=== PATIENT | female | born 1940 ===

== ENCOUNTER 2021-06-23 15:12 | Inpatient (IN) | payer MEDICARE ==
[2021-06-23] MEDS ORDERED: SODIUM CHLORIDE 0.9% 500 ML 500 ML IV STA (16:10)
--- NOTE | 2021-06-23 16:26 | ED ---
Recheck HPI - General Chief Complaint: Recheck/Abnormal Lab/Rx Stated Complaint: not eating or drinking Time Seen by Provider: 06/23/21 15:24 Source: patient Mode of arrival: EMS Limitations: no limitations - History of Present Illness Initial Comments: 81-year-old female patient presents to the emergency department today from her [facility] facility for PEG tube placement. Patient has not been eating or drinking. Power of admitted attorneys wanted her transferred here so she could have a PEG tube placed. She was recently admitted to the hospital for infected left shoulder, had surgical removal of hardware and has been treated for MRSA infection of the joint. Patient is reporting feeling unwell for the last week states she feels very nauseated does not want to eat or drink. She states her abdomen is hurting, unable to pinpoint location. Patient is poor historian. No family present. - Related Data Home Medications Medication Instructions Recorded Confirmed Acetaminophen [Tylenol] 500 mg PO Q6H PRN 06/15/21 06/23/21 Atorvastatin [Lipitor] 40 mg PO HS@209906/15/21 06/23/21 Cholestyramine (with Sugar) 4 gm PO DAILY@89906/15/21 06/23/21 [Questran Packet] Docusate [Colace] 100 mg PO BID@0900,1700 06/15/21 06/23/21 Memantine [Namenda] 10 mg PO BID@0900,209906/15/21 06/23/21 Metoprolol Succinate [Toprol XL] 50 mg PO HS@209906/15/21 06/23/21 Omeprazole 20 mg PO DAILY@0606/15/21 06/23/21 Polyethylene Glycol 3350 [Miralax] 17 gm PO DAILY@89906/15/21 06/23/21 Furosemide [Lasix] 20 mg PO DAILY@89906/23/21 06/23/21 Ibuprofen [Advil] 200 mg PO QID@0000,0600,12,18 06/23/21 06/23/21 Megestrol [Megace] 400 mg PO DAILY@89906/23/21 06/23/21 Potassium Bicarbonate/Cit AC 10 meq PO DAILY@0906/23/21 06/23/21 [K-Lyte] traMADol HCL [Ultram] 50 mg PO Q4HR PRN 06/23/21 06/23/21 Previous Rx's Medication Instructions Recorded QUEtiapine [SEROquel] 12.5 mg PO HS PRN tab 06/22/21 Allergies Allergy/AdvReac Type Severity Reaction Status Date / Time bupropion Allergy Unknown Verified 06/23/21 17:33 codeine Allergy Unknown Verified 06/23/21 17:33 fentanyl Allergy Unknown Verified 06/23/21 17:33 metoclopramide Allergy Unknown Verified 06/23/21 17:33 midazolam Allergy Unknown Verified 06/23/21 17:33 morphine Allergy Unknown Verified 06/23/21 17:33 nitrofurantoin Allergy Unknown Verified 06/23/21 17:33 simvastatin Allergy Unknown Verified 06/23/21 17:33 Review of Systems ROS Statement: Those systems with pertinent positive or pertinent negative responses have been documented in the HPI. ROS Other: All systems not noted in ROS Statement are negative. Past Medical History Past Medical History: Dementia, GERD/Reflux, Hyperlipidemia, Hypertension, Seizure Disorder Additional Past Medical History / Comment(s): urinay tract infection, History of Any Multi-Drug Resistant Organisms: MRSA Date of last positivie culture/infection: 06/16/21 MDRO Source:: MRSA SHOULDER Past Surgical History: Orthopedic Surgery Additional Past Surgical History / Comment(s): right humerous fx repair Past Anesthesia/Blood Transfusion Reactions: Unable to Obtain Past Psychological History: Unable to Obtain, Depression Smoking Status: Unknown if ever smoked General Exam Limitations: no limitations General appearance: alert, in no apparent distress, other (This is a well- developed, well-nourished elderly female patient in no acute distress. Vital signs upon presentation are temperature 98.2F, pulse 92, respirations 18, blood pressure 153/73, pulse ox 98% on room air.) Eye exam: Present: normal appearance, PERRL, EOMI. Absent: scleral icterus, conjunctival injection, periorbital swelling ENT exam: Present: normal exam, normal oropharynx, mucous membranes moist Respiratory exam: Present: normal lung sounds bilaterally. Absent: respiratory distress, wheezes, rales, rhonchi, stridor Cardiovascular Exam: Present: regular rate, normal rhythm, normal heart sounds. Absent: systolic murmur, diastolic murmur, rubs, gallop, clicks GI/Abdominal exam: Present: soft, tenderness (Generalized), normal bowel sounds. Absent: distended, guarding, rebound, rigid Neurological exam: Present: alert, oriented X3, CN II-XII intact Psychiatric exam: Present: normal affect, normal mood Skin exam: Present: warm, dry, intact, normal color. Absent: rash Course Vital Signs 06/23/21 06/23/21 06/23/21 15:18 17:00 18:09 Temperature 98.2 F Pulse Rate 92 90 89 Respiratory 18 18 18 Rate Blood Pressure 153/73 149/73 147/70 O2 Sat by Pulse 98 97 97 Oximetry 06/23/21 19:41 Temperature Pulse Rate 102 H Respiratory 20 Rate Blood Pressure 143/68 O2 Sat by Pulse 97 Oximetry Medical Decision Making - Medical Decision Making 81-year-old female patient presents to the emergency department from on the [facility] for PEG tube placement. Patient has not been eating or drinking, return to requested she be evaluated for this. Did recently have left shoulder surgery and IV antibiotics for MRSA infection, it appears as though the course of antibiotics is complete. Labs reviewed reviewed and did show decreased hemoglobin which is 9.3. She did have low potassium at 3.1. Unable take these orally so we did administer IV infusion to replace. Shows complaining of abdominal pain so did perform CT abdomen and pelvis which showed no acute abnormalities, some fluid on the lungs. Other labs are relatively unremarkable. She'll be admitted to the hospitalist consult to Dr. Newman for possible PEG tube. My attending is Dr. Mchugh. - Lab Data Result diagrams: 06/23/21 18:01 06/23/21 18:04 Lab Results 06/23/21 06/23/21 06/23/21 Range/Units 16:59 18:01 18:01 WBC 9.8 (3.8-10.6) k/uL RBC 2.98 L (3.80-5.40) m/uL Hgb 9.3 L (11.4-16.0) gm/dL Hct 29.2 L (34.0-46.0) % MCV 97.8 (80.0-100.0) fL MCH 31.1 (25.0-35.0) pg MCHC 31.8 (31.0-37.0) g/dL RDW 14.5 (11.5-15.5) % Plt Count 354 (150-450) k/uL MPV 7.8 Neutrophils % 70 % Lymphocytes % 18 % Monocytes % 6 % Eosinophils % 3 % Basophils % 0 % Neutrophils # 6.9 (1.3-7.7) k/uL Lymphocytes # 1.8 (1.0-4.8) k/uL Monocytes # 0.6 (0-1.0) k/uL Eosinophils # 0.3 (0-0.7) k/uL Basophils # 0.0 (0-0.2) k/uL Hypochromasia Slight Sodium (137-145) mmol/L Potassium (3.5-5.1) mmol/L Chloride (98-107) mmol/L Carbon Dioxide (22-30) mmol/L Anion Gap mmol/L BUN (7-17) mg/dL Creatinine (0.52-1.04) mg/dL Est GFR (CKD-EPI)AfAm (>60 ml/min/1.73 sqM) Est GFR (CKD-EPI)NonAf (>60 ml/min/1.73 sqM) Glucose (74-99) mg/dL Plasma Lactic Acid Chicho 1.5 (0.7-2.0) mmol/L Calcium (8.4-10.2) mg/dL Total Bilirubin (0.2-1.3) mg/dL AST (14-36) U/L ALT (4-34) U/L Alkaline Phosphatase (38-126) U/L Total Protein (6.3-8.2) g/dL Albumin (3.5-5.0) g/dL Lipase (23-300) U/L Urine Color Yellow Urine Appearance Cloudy H (Clear) Urine pH 5.0 (5.0-8.0) Ur Specific [place] 1.017 (1.001-1.035) Urine Protein Trace H (Negative) Urine Glucose (UA) Negative (Negative) Urine Ketones 1+ H (Negative) Urine Blood Negative (Negative) Urine Nitrite Negative (Negative) Urine Bilirubin Negative (Negative) Urine Urobilinogen <2.0 (<2.0) mg/dL Ur Leukocyte Esterase Small H (Negative) Urine RBC 1 (0-5) /hpf Urine WBC 6 H (0-5) /hpf Ur Squamous Epith Cells 4 (0-4) /hpf Urine Bacteria Rare H (None) /hpf Urine Mucus Rare H (None) /hpf 08/20/21 Range/Units 18:04 WBC (3.8-10.6) k/uL RBC (3.80-5.40) m/uL Hgb (11.4-16.0) gm/dL Hct (34.0-46.0) % MCV (80.0-100.0) fL MCH (25.0-35.0) pg MCHC (31.0-37.0) g/dL RDW (11.5-15.5) % Plt Count (150-450) k/uL MPV Neutrophils % % Lymphocytes % % Monocytes % % Eosinophils % % Basophils % % Neutrophils # (1.3-7.7) k/uL Lymphocytes # (1.0-4.8) k/uL Monocytes # (0-1.0) k/uL Eosinophils # (0-0.7) k/uL Basophils # (0-0.2) k/uL Hypochromasia Sodium 141 (137-145) mmol/L Potassium 3.1 L (3.5-5.1) mmol/L Chloride 109 H (98-107) mmol/L Carbon Dioxide 20 L (22-30) mmol/L Anion Gap 12 mmol/L BUN 16 (7-17) mg/dL Creatinine 1.12 H (0.52-1.04) mg/dL Est GFR (CKD-EPI)AfAm 53 (>60 ml/min/1.73 sqM) Est GFR (CKD-EPI)NonAf 46 (>60 ml/min/1.73 sqM) Glucose 97 (74-99) mg/dL Plasma Lactic Acid Chicho (0.7-2.0) mmol/L Calcium 8.7 (8.4-10.2) mg/dL Total Bilirubin 0.3 (0.2-1.3) mg/dL AST 27 (14-36) U/L ALT 8 (4-34) U/L Alkaline Phosphatase 92 (38-126) U/L Total Protein 5.9 L (6.3-8.2) g/dL Albumin 2.8 L (3.5-5.0) g/dL Lipase 84 (23-300) U/L Urine Color Urine Appearance (Clear) Urine pH (5.0-8.0) Ur Specific [place] (1.001-1.035) Urine Protein (Negative) Urine Glucose (UA) (Negative) Urine Ketones (Negative) Urine Blood (Negative) Urine Nitrite (Negative) Urine Bilirubin (Negative) Urine Urobilinogen (<2.0) mg/dL Ur Leukocyte Esterase (Negative) Urine RBC (0-5) /hpf Urine WBC (0-5) /hpf Ur Squamous Epith Cells (0-4) /hpf Urine Bacteria (None) /hpf Urine Mucus (None) /hpf - Radiology Data Radiology results: report reviewed, image reviewed Disposition Clinical Impression: Failure to thrive, Hypokalemia Disposition: ADMITTED IP TO THIS [facility] Condition: Serious Referrals: Johnathon Sylvester MD [Primary Care Provider] - 1-2 days Decision to Admit Reason: Admit from EC Decision Date: 06/23/21 Decision Time: 20:02
[2021-06-23 17:17] LABS: Appearance,Urine Cloudy (Clear); Bacteria,Urine Rare /hpf; Bilirubin,Urine Negative (Negative); Blood,Urine Negative (Negative); Color,Urine Yellow; Glucose,Urine (UA) Negative (Negative); Ketones,Urine 1+ (Negative); Leukocyte Esterase,Urine Small (Negative); Mucus,Urine Rare /hpf; Nitrite,Urine Negative (Negative); Protein,Urine Trace (Negative); RBC,Urine 1 /hpf (0-5); Specific Gravity,Urine 1.017 (1.001-1.035); Squamous Epithelial Cell,Urine 4 /hpf (0-4); Urobilinogen,Urine <2.0 mg/dL (<2.0); WBC,Urine 6 /hpf (0-5)
[2021-06-23 18:10] LABS: Basophils % (A) 0 %; Eosinophils # (A) 0.3 k/uL (0-0.7); Eosinophils % (A) 3 %; HCT 29.2 % (34.0-46.0); HGB 9.3 gm/dL (11.4-16.0); Hypochromasia Slight; Lymphocytes # (A) 1.8 k/uL (1.0-4.8); Lymphocytes % (A) 18 %; MCH 31.1 pg (25.0-35.0); MCHC 31.8 g/dL (31.0-37.0); MCV 97.8 fL (80.0-100.0); Mean Platelet Volume 7.8; Monocytes # (A) 0.6 k/uL (0-1.0); Monocytes % (A) 6 %; Neutrophils # (A) 6.9 k/uL (1.3-7.7); Neutrophils % (A) 70 %; Platelet Count 354 k/uL (150-450); RBC 2.98 m/uL (3.80-5.40); RDW 14.5 % (11.5-15.5); WBC 9.8 k/uL (3.8-10.6)
[2021-06-23 18:21] LABS: Albumin 2.8 g/dL (3.5-5.0); Calcium 8.7 mg/dL (8.4-10.2); Potassium 3.1 mmol/L (3.5-5.1); Total Bilirubin 0.3 mg/dL (0.2-1.3); Total Protein 5.9 g/dL (6.3-8.2)
[2021-06-23] MEDS ORDERED: POTASSIUM CHLORIDE ER 20 MEQ TAB.ER PO STA (18:37)
[2021-06-23] MEDS ORDERED: ACETAMINOPHEN TAB 500 MG TAB PO PRN (19:13)
[2021-06-23] MEDS ORDERED: Potassium Replacement Protocol 1 EACH MISC MISCELLANE PRN (20:00)
--- NOTE | 2021-06-23 20:00 | CT ---
EXAMINATION TYPE: CT abdomen pelvis w con DATE OF EXAM: 06/23/2021 COMPARISON: None HISTORY: Abdominal pain. CT DLP: 1054.7 mGycm Automated exposure control for dose reduction was used. CONTRAST: Performed with IV Contrast, patient injected with 80ml mL of Isovue 300. Images obtained from the diaphragm to the floor the pelvis with IV contrast. There are bilateral pleural effusions. Heart is normal. There is 3 cm cyst in the posterior right lob e of the liver. There are multiple surgical clips at the gastroesophageal junction. The common bile d uct is dilated and measures 1.5 cm. There is some mild ectasia of the intrahepatic bile ducts. There are clips from cholecystectomy. There is no pancreatic mass. Spleen is intact. There is no adrenal mass. Kidneys show satisfactory contrast opacification. There is no hydronephrosi s. Delayed images show normal renal excretion. Abdominal aorta is atheromatous. There is no retroperi toneal adenopathy. Bladder distends smoothly. There is right hip prosthesis. There are multiple sigmo id diverticula. There is no diverticulitis. There is no mesenteric edema. There is no ascites or free air. There is no bowel obstruction. Appendix is not seen. There is no sign of thickened appendix. There is metal artifact from right hip nailing. Lumbar vertebra have normal alignment. There is verte broplasty at L2 and L1 and T12 and T11 with up to 30% loss of height. There is osteopenia. The bony p ede is intact. IMPRESSION: There is sigmoid diverticulosis without diverticulitis. Atherosclerotic vascular disease. Cholecystectomy with dilated biliary tree. No obstructing lesion seen. Bilateral pleural effusions. B ilateral basilar atelectasis. Pleural effusion significantly increased compared to 06/15/2021 CT scan of the chest. This could be congestive heart failure. Bile ducts not changed.
[2021-06-23] MEDS ORDERED: NALOXONE 0.4 MG/ML 1 ML VIAL IV PRN (20:02)
--- NOTE | 2021-06-23 20:07 | HP ---
HISTORY AND PHYSICAL DATE OF SERVICE: 06/23/2021 CHIEF COMPLAINTS: Diminished p.o. intake and confusion. HISTORY OF PRESENT ILLNESS: This 81-year-old woman with a past medical history of dementia, history of GERD, hypertension, seizure disorder, history of MRSA, living in the [facility], was recently admitted to the hospital with change in mental status, encephalopathy and possible vancomycin toxicity. The patient had a possible infection of the left shoulder, but the patient was sent to rehab, but currently apparently the patient was not taking enough feeds there. The patient continued to be confused. The patient was not eating or drinking and the patient was transferred to [facility] for further evaluation and possible PEG tube placement. The patient is confused, unable to give a coherent history. Most of the history is taken from my discussion with staff and review of the chart at this time. PAST MEDICAL HISTORY: History of dementia, GERD, hypertension, hyperlipidemia, seizure disorder, history of left infected shoulder recently. MEDICATIONS: Home medications are Tylenol, Ultram, Advil, Namenda, Colace, Seroquel, K-Lyte, MiraLAX, omeprazole, Toprol-XL, Megace, Lasix, Lipitor. Doses are reviewed. ALLERGIES: BUPROPION, CODEINE, FENTANYL, METOCLOPRAMIDE, MORPHINE, NITROFURANTOIN, SIMVASTATIN. Family history, social history, review of systems could not be taken. The patient is confused. PHYSICAL EXAMINATION: Pulse is 89, blood pressure 147/70, respiration 18, temperature 98.2, pulse ox 97% on 2 L. HEENT: Conjunctivae normal. NECK: No jugular venous distention. CARDIOVASCULAR: S1, S2 muffled. RESPIRATION: Breath sounds diminished at the bases. A few scattered rhonchi and crackles. ABDOMEN: Soft, nontender. No mass palpable. Mild diffuse discomfort. LEGS: No edema. No swelling. NERVOUS SYSTEM: Higher functions as mentioned earlier. Moves all 4 limbs. No focal motor or sensory deficit. LYMPHATICS: No lymph node palpable in neck, axillae or groin. SKIN: No ulcer, rash, bleeding. JOINTS: No active deforming arthropathy. LEFT SHOULDER: Status post surgery. LABS: WBC 9.2, hemoglobin 9.2, sodium 142, potassium 3.9. ASSESSMENT: 1. Change in mental status, acute metabolic encephalopathy, multifactorial. 2. Diminished oral intake. 3. Hypokalemia. 4. Dehydration with acute renal failure. 5. Hypoalbuminemia with mild to moderate protein-calorie malnutrition. 6. History of postoperative infection of the left shoulder, status post incision and drainage and removal of the hardware per Orthopedic Surgery showing MRSA. 7. History of dementia. 8. History of gastroesophageal reflux disease. 9. Hypertension. 10.Hyperlipidemia. 11.History of seizure disorder. 12.History of urinary tract infection. 13.History of MRSA, shoulder. RECOMMENDATIONS AND DISCUSSION: In this 81-year-old woman who presented with multiple complex medical issues, we will monitor the patient closely, continue the current medications, continue symptomatic treatment. It seems like the patient will require a PEG tube. Will continue to monitor. Resume the home medications. Surgical evaluation. Guarded prognosis because of multiple complex medical issues. Further recommendations to follow. MMANGEL / ENN: [id number] / MTDD
[2021-06-23] MEDS: POTASSIUM CHLORIDE 10 MEQ in WATER FOR INJECTION 1 100ML.BAG IVPB SCH ×2 (21:39→23:04)
[2021-06-23] MEDS: MEMANTINE 10 MG TAB PO SCH (22:29)
[2021-06-23] MEDS: ATORVASTATIN 40 MG TAB PO SCH (22:29)
[2021-06-23] MEDS: METOPROLOL SUCCINATE (ER) 50 MG TAB.ER.24H PO SCH (22:29)
[2021-06-24] MEDS: IBUPROFEN 200 MG TAB PO SCH ×5 (00:10→20:24)
[2021-06-24] MEDS: POTASSIUM CHLORIDE 10 MEQ in WATER FOR INJECTION 1 100ML.BAG IVPB SCH ×2 (00:11→01:20)
[2021-06-24] MEDS: PANTOPRAZOLE 40 MG TABLET PO SCH (06:22)
[2021-06-24] MEDS: FUROSEMIDE 20 MG TAB PO SCH (09:25)
[2021-06-24] MEDS: DOCUSATE 100 MG CAP PO SCH ×2 (09:25→16:22)
[2021-06-24] MEDS: MEMANTINE 10 MG TAB PO SCH ×2 (09:25→20:24)
[2021-06-24] MEDS: POTASSIUM CHLORIDE ER 10 MEQ TAB.ER.PRT PO SCH (09:25)
[2021-06-24] MEDS: MEGESTROL 400 MG/10 ML CUP PO SCH (09:26)
[2021-06-24] MEDS: polyethylene glycoL 3350 17 GM POWD.PACK PO SCH (09:26)
[2021-06-24] MEDS: CHOLESTYRAMINE (WITH SUGAR) 4 GM PACKET PO SCH (09:26)
--- NOTE | 2021-06-24 09:50 | P.GSCN ---
History of Present Illness Consult date: 06/24/21 Reason for Consult: Malnutrition History of present illness: 81-year-old female comes from the long term. Patient apparently has not been eating or drinking. Patient's daughter Rosita requesting PEG tube placement. Recently hospitalized for infected left shoulder. On antibiotics for that. Some nausea. Some confusion. Review of Systems The patient denies any acute changes in vision or hearing, no dysphagia or odynophagia, no chest pain or shortness of breath, no dysuria or hematuria, no headache, no runny nose, no rectal bleeding or melena, no unexplained weight loss Past Medical History Past Medical History: Dementia, GERD/Reflux, Hyperlipidemia, Hypertension, Seizure Disorder Additional Past Medical History / Comment(s): urinay tract infection, History of Any Multi-Drug Resistant Organisms: MRSA Year Discovered:: 06/16/21 MDRO Source:: MRSA SHOULDER Past Surgical History: Orthopedic Surgery Additional Past Surgical History / Comment(s): right humerous fx repair Past Anesthesia/Blood Transfusion Reactions: Unable to Obtain Past Psychological History: Unable to Obtain, Depression Smoking Status: Unknown if ever smoked Medications and Allergies Home Medications Medication Instructions Recorded Confirmed Type Acetaminophen [Tylenol] 500 mg PO Q6H PRN 06/15/21 06/23/21 History Atorvastatin [Lipitor] 40 mg PO HS@209906/15/21 06/23/21 History Cholestyramine (with Sugar) 4 gm PO DAILY@89906/15/21 06/23/21 History [Questran Packet] Docusate [Colace] 100 mg PO BID@0900,1700 06/15/21 06/23/21 History Memantine [Namenda] 10 mg PO BID@0900,209906/15/21 06/23/21 History Metoprolol Succinate [Toprol XL] 50 mg PO HS@209906/15/21 06/23/21 History Omeprazole 20 mg PO DAILY@0600 06/15/21 06/23/21 History Polyethylene Glycol 3350 [Miralax] 17 gm PO DAILY@89906/15/21 06/23/21 History QUEtiapine [SEROquel] 12.5 mg PO HS PRN tab 06/22/21 06/23/21 Rx Furosemide [Lasix] 20 mg PO DAILY@89906/23/21 06/23/21 History Ibuprofen [Advil] 200 mg PO QID@0000,0600,12,18 06/23/21 06/23/21 History Megestrol [Megace] 400 mg PO DAILY@0900 06/23/21 06/23/21 History Potassium Bicarbonate/Cit AC 10 meq PO DAILY@0900 06/23/21 06/23/21 History [K-Lyte] traMADol HCL [Ultram] 50 mg PO Q4HR PRN 06/23/21 06/23/21 History Allergies Allergy/AdvReac Type Severity Reaction Status Date / Time bupropion Allergy Unknown Verified 06/23/21 17:33 codeine Allergy Unknown Verified 06/23/21 17:33 fentanyl Allergy Unknown Verified 06/23/21 17:33 metoclopramide Allergy Unknown Verified 06/23/21 17:33 midazolam Allergy Unknown Verified 06/23/21 17:33 morphine Allergy Unknown Verified 06/23/21 17:33 nitrofurantoin Allergy Unknown Verified 06/23/21 17:33 simvastatin Allergy Unknown Verified 06/23/21 17:33 Surgical - Exam Vital Signs Temp Pulse Resp BP Pulse Ox 98.2 F 92 18 153/73 98 06/23/21 15:18 06/23/21 15:18 06/23/21 15:18 06/23/21 15:18 06/23/21 15:18 Physical exam: General: Well-developed, well-nourished HEENT: Normocephalic, sclerae nonicteric Abdomen: Nontender, nondistended Extremities: Left arm incision Neuro: Alert and oriented Results - Labs 06/23/21 18:01 06/23/21 18:04 Abnormal Lab Results - Last 24 Hours (Table) 06/23/21 06/23/21 06/23/21 Range/Units 16:59 18:01 18:04 RBC 2.98 L (3.80-5.40) m/uL Hgb 9.3 L (11.4-16.0) gm/dL Hct 29.2 L (34.0-46.0) % Potassium 3.1 L (3.5-5.1) mmol/L Chloride 109 H (98-107) mmol/L Carbon Dioxide 20 L (22-30) mmol/L Creatinine 1.12 H (0.52-1.04) mg/dL Total Protein 5.9 L (6.3-8.2) g/dL Albumin 2.8 L (3.5-5.0) g/dL Urine Appearance Cloudy H (Clear) Urine Protein Trace H (Negative) Urine Ketones 1+ H (Negative) Ur Leukocyte Esterase Small H (Negative) Urine WBC 6 H (0-5) /hpf Urine Bacteria Rare H (None) /hpf Urine Mucus Rare H (None) /hpf Diabetes panel 06/23/21 Range/Units 18:04 Sodium 141 (137-145) mmol/L Potassium 3.1 L (3.5-5.1) mmol/L Chloride 109 H (98-107) mmol/L Carbon Dioxide 20 L (22-30) mmol/L BUN 16 (7-17) mg/dL Creatinine 1.12 H (0.52-1.04) mg/dL Glucose 97 (74-99) mg/dL Calcium 8.7 (8.4-10.2) mg/dL AST 27 (14-36) U/L ALT 8 (4-34) U/L Alkaline Phosphatase 92 (38-126) U/L Total Protein 5.9 L (6.3-8.2) g/dL Albumin 2.8 L (3.5-5.0) g/dL Calcium panel 06/23/21 Range/Units 18:04 Calcium 8.7 (8.4-10.2) mg/dL Albumin 2.8 L (3.5-5.0) g/dL Pituitary panel 06/23/21 Range/Units 18:04 Sodium 141 (137-145) mmol/L Potassium 3.1 L (3.5-5.1) mmol/L Chloride 109 H (98-107) mmol/L Carbon Dioxide 20 L (22-30) mmol/L BUN 16 (7-17) mg/dL Creatinine 1.12 H (0.52-1.04) mg/dL Glucose 97 (74-99) mg/dL Calcium 8.7 (8.4-10.2) mg/dL Adrenal panel 06/23/21 Range/Units 18:04 Sodium 141 (137-145) mmol/L Potassium 3.1 L (3.5-5.1) mmol/L Chloride 109 H (98-107) mmol/L Carbon Dioxide 20 L (22-30) mmol/L BUN 16 (7-17) mg/dL Creatinine 1.12 H (0.52-1.04) mg/dL Glucose 97 (74-99) mg/dL Calcium 8.7 (8.4-10.2) mg/dL Total Bilirubin 0.3 (0.2-1.3) mg/dL AST 27 (14-36) U/L ALT 8 (4-34) U/L Alkaline Phosphatase 92 (38-126) U/L Total Protein 5.9 L (6.3-8.2) g/dL Albumin 2.8 L (3.5-5.0) g/dL Assessment and Plan (1) Protein-calorie malnutrition, moderate Narrative/Plan: Options discussed with the patient's daughter Rosita by phone. She remains interested in PEG tube placement for supplemental feeding. We'll schedule for EGD with PEG tube placement tomorrow. Risks of bleeding, infection, bowel injury, inability to place catheter, aspiration. She understands and wishes to proceed. Current Visit: Yes Status: Acute Code(s): E44.0 - MODERATE PROTEIN-CALORIE MALNUTRITION SNOMED Code(s): 985145572
--- NOTE | 2021-06-24 12:29 | P.PN ---
Subjective Progress Note Date: 06/24/21 Principal diagnosis: Encephalopathy On reviewing vitals from today 81-year-old female with a past medical history of dementia, GERD, hypertension, seizure disorder, history of MRSA, living in [facility] was admitted to the hospital for mental status changes possibly secondary to vancomycin toxicity. Patient has infection of the left shoulder, had surgical removal of hardware and treated for MRSA infection of the joint, sent to rehab on vancomycin, patient continued to be confused and so transferred to [facility] for further evaluation. The patient has v song poor intake, confused and unable to provide any history. On reviewing the previous records, the patient was then discharged from the hospital last week to [facility] with instructions not to return to the hospital and for possible comfort measures discussion. She was transferred from the facility for decreased by mouth intake and PEG tube placement as requested by power of civil attorney. On reviewing records from today temperature of 97.3, heart rate 86, respiratory rate 18, blood pressure 124/69, saturating at 96% on room air. Objective - Vital Signs Vital signs: Vital Signs Temp 97.3 F L 06/24/21 02:33 Pulse 86 06/24/21 02:33 Resp 18 06/24/21 02:33 BP 124/69 06/24/21 02:33 Pulse Ox 96 06/24/21 02:33 Intake & Output 06/23/21 06/24/21 06/24/21 18:59 06:59 18:59 Intake Total 400 Balance 400 Weight 68.039 kg 68.039 kg Intake: Intake, IV Titration 400 Amount Potassium Chloride 10 meq 400 In Water For Injection 1 100ml.bag @ 100 mls/hr IVPB Q1HR [facility] Rx#: [id number] - Exam PHYSICAL EXAMINATION: GENERAL: The patient is alert and oriented x1-2, continued lethargy. HEENT: Pupils are round and equally reacting to light. CARDIOVASCULAR: S1 and S2 muffled. PULMONARY: diminished breath sounds bilaterally with no wheezing or crackles. ABDOMEN: Soft, nontender, nondistended, normoactive bowel sounds. No palpable organomegaly. MUSCULOSKELETAL: No joint swelling or deformity. EXTREMITIES: No pedal edema. Left shoulder dressing is dry and sling noted, in duration of the left shoulder. Positive tenderness. NEUROLOGICAL: Patient is confused unable to assess clearly doesn't appear to have any focal deficits - Labs CBC & Chem 7: 06/23/21 18:01 06/23/21 18:04 Labs: Abnormal Lab Results - Last 24 Hours (Table) 06/23/21 06/23/21 06/23/21 Range/Units 16:59 18:01 18:04 RBC 2.98 L (3.80-5.40) m/uL Hgb 9.3 L (11.4-16.0) gm/dL Hct 29.2 L (34.0-46.0) % Potassium 3.1 L (3.5-5.1) mmol/L Chloride 109 H (98-107) mmol/L Carbon Dioxide 20 L (22-30) mmol/L Creatinine 1.12 H (0.52-1.04) mg/dL Total Protein 5.9 L (6.3-8.2) g/dL Albumin 2.8 L (3.5-5.0) g/dL Urine Appearance Cloudy H (Clear) Urine Protein Trace H (Negative) Urine Ketones 1+ H (Negative) Ur Leukocyte Esterase Small H (Negative) Urine WBC 6 H (0-5) /hpf Urine Bacteria Rare H (None) /hpf Urine Mucus Rare H (None) /hpf Assessment and Plan Assessment: ASSESSMENT -Metabolic encephalopathy due to KAUR -KAUR secondary to decreased by mouth intake. -possible vancomycin toxicity -Postoperative infection of the left shoulder, status post incision and drainage with removal of hardware with orthopedics with culture showing MRSA -History of dementia baseline is not clear -Hypokalemia -Gastroesophageal reflux disease -Hyperlipidemia -Hypertension -history of seizures PLAN: Patient has been started on IV fluids. Patient refusing to eat and drink. Surgical services have been consulted for PEG tube placement. [facility] has been [facility] to the [facility] with [facility]com[facility] for the left shoulder infection, we will need to discuss with patient's daughter regarding the goals of treatment. Depending upon that we will consider ID consult. We will continue with the current medication regimen. Overall prognosis is poor because of multiple chronic complex medical conditions. Further recommendations depending on the progress of the patient.
[2021-06-24 12:42] LABS: Basophils # (A) 0.04 X 10*3/uL (0.00-0.10); Basophils % (A) 0.5 %; Eosinophils # (A) 0.45 X 10*3/uL (0.04-0.35); Eosinophils % (A) 5.6 %; HCT 27.8 % (37.2-46.3); HGB 8.7 g/dL (12.0-15.0); Lymphocytes # (A) 2.18 X 10*3/uL (0.90-5.00); MCHC 31.3 g/dL (32.0-37.0); MCV 95.9 fL (80.0-97.0); Mean Platelet Volume 11.3 fL (9.5-12.2); Monocytes % (A) 11.1 %; Neutrophils # (A) 4.43 X 10*3/uL (1.80-7.70); Neutrophils % (A) 54.8 %; Platelet Count 257 X 10*3/uL (140-440); RDW 14.6 % (11.5-14.5); WBC 8.08 X 10*3/uL (4.50-10.00)
[2021-06-24 14:07] LABS: African American GFR (CKD) 54.1 (60.0-200.0); Anion Gap 11.3 mmol/L (4.00-12.00); BUN/Creat Ratio 13.64 Ratio (12.00-20.00); Calcium 8.3 mg/dL (8.7-10.3); Carbon Dioxide 21.7 mmol/L (21.6-31.8); Non-African American GFR(CKD) 46.7 (60.0-200.0); Potassium 4.1 mmol/L (3.5-5.5)
[2021-06-24] MEDS: METOPROLOL SUCCINATE (ER) 50 MG TAB.ER.24H PO SCH (20:24)
[2021-06-24] MEDS: ATORVASTATIN 40 MG TAB PO SCH (20:24)
[2021-06-25] MEDS: PANTOPRAZOLE 40 MG TABLET PO SCH (04:28)
[2021-06-25] MEDS: FUROSEMIDE 20 MG TAB PO SCH (07:30)
[2021-06-25] MEDS: polyethylene glycoL 3350 17 GM POWD.PACK PO SCH (07:30)
[2021-06-25] MEDS: DOCUSATE 100 MG CAP PO SCH (07:30)
[2021-06-25] MEDS: MEMANTINE 10 MG TAB PO SCH ×2 (07:30→21:32)
[2021-06-25] MEDS: POTASSIUM CHLORIDE ER 10 MEQ TAB.ER.PRT PO SCH (07:30)
[2021-06-25] MEDS: MEGESTROL 400 MG/10 ML CUP PO SCH (07:30)
[2021-06-25] MEDS: CHOLESTYRAMINE (WITH SUGAR) 4 GM PACKET PO SCH (07:30)
[2021-06-25] MEDS ORDERED: PROPOFOL 10 MG/ML 20 ML VIAL IV ONE (08:11)
[2021-06-25] MEDS ORDERED: LACTATED RINGERS 1,000 ML IV ONE ×2 (08:15)
--- NOTE | 2021-06-25 08:31 | P.PCN ---
Date of Procedure: 06/25/21 Procedure(s) Performed: PREOPERATIVE DIAGNOSIS: Malnutrition POSTOPERATIVE DIAGNOSIS: Same PROCEDURE: EGD with PEG tube placement SURGEON: Paty EBL: Minimal ANESTHESIA: Sedation COMPLICATIONS: None OPERATIVE PROCEDURE: The patient was placed in the supine position on the endoscopy table. The patient was sedated per anesthesia that time. The Olympus gastroscope was inserted into the oropharynx and passed under direct visualization to the region of the duodenum. No obstruction was seen. The pylorus was widely patent. The stomach was carefully inspected. The patient had evidence of scarring in the antrum that may have been from prior surgery. Patient also was noted to have a small sliding hiatal hernia. The stomach was fully insufflated with air. The abdominal wall was inspected. The light was seen shining through the abdominal wall in the left upper quadrant. This site was chosen for PEG tube placement. The area was prepped in the usual sterile fashion. This area was then localized with lidocaine. No air was evident when aspirating while advancing the localizing needle into the stomach until the stomach was reached. A small vertical incision was made using the scalpel. The Seldinger needle was advanced into the lumen of the stomach the wire was advanced. The wire was grasped with an endoscopic snare. The wire was pulled through the oropharynx. The catheter was then connected to the guidewire and the guidewire and catheter were pulled anteriorly until the hub of the PEG tube catheter was seated against the anterior wall the stomach. The circular bolster was applied and tightened down. The endoscope was then readvanced into the stomach. There was no evidence of any bleeding and there was appropriate tightness on the bolster. The catheter was cut appropriately. The dual port feeding adapter was applied. DISPOSITION: Stable to recovery room
[2021-06-25] MEDS ORDERED: ACETAMINOPHEN ORAL SUSP 160 MG/5 ML CUP PEG/G-TUBE PRN (16:43)
[2021-06-25] MEDS: DOCUSATE ORAL SOLN 100 MG/10 ML CUP PEG/G-TUBE SCH (17:14)
[2021-06-25] MEDS: IBUPROFEN ORAL SUSP 100 MG/5 ML CUP PEG/G-TUBE SCH ×2 (17:14→23:26)
[2021-06-25] MEDS: METOPROLOL SUCCINATE (ER) 50 MG TAB.ER.24H PO SCH (21:32)
[2021-06-25] MEDS: ATORVASTATIN 40 MG TAB PO SCH (21:33)
[2021-06-25] MEDS: QUEtiapine 25 MG TAB PO PRN (23:25)
--- NOTE | 2021-06-26 02:01 | P.PN ---
Subjective Progress Note Date: 06/25/21 Principal diagnosis: Encephalopathy Ms. Lizarraga is a 81-year-old female with a past medical history of dementia, GERD, hypertension, seizure disorder, history of MRSA, living in [place] area was admitted to the hospital for mental status changes possibly secondary to vancomycin toxicity. Patient has infection of the left shoulder, had surgical removal of hardware and treated for MRSA infection of the joint, sent to rehab on vancomycin, patient continued to be confused and so transferred to [facility] for further evaluation. The patient has very poor intake, confused and unable to provide any history. On reviewing the previous records, the patient was then discharged from the hospital last week to [facility] with instructions not to return to the hospital and for possible comfort measures discussion. She was transferred from the facility for decreased by mouth intake and PEG tube placement as requested by power of assistant district attorney. On 06/25/2021 -patient is seen and examined at the bedside. Patient had PEG tube placement done this morning by Dr. Newman. She is currently lying comfortably in the bed appears to be no acute distress. No acute events reported by nursing staff. On reviewing the patient's vitals temperature 98.4, heart rate 87, respiratory rate 16, blood pressure 173/94, saturating at 93% on 2 L of nasal cannula. Patient's labs no new labs from this morning labs from yesterday look within normal limits. Patient's medications have been reviewed Active Medications Acetaminophen (Acetaminophen Oral Susp 160 Mg/5 Ml Cup) 500 mg PEG/G-TUBE Q6H PRN PRN Reason: Mild Pain or Fever > 100.5 Atorvastatin Calcium (Atorvastatin 40 Mg Tab) 40 mg PO HS@2100 [facility] Last Admin: 06/25/21 21:33 Dose: 40 mg Documented by: Cholestyramine Resin (Cholestyramine (With Sugar) 4 Gm Packet) 4 gm PO DAILY@0900 [facility] Last Admin: 06/25/21 07:30 Dose: Not Given Documented by: Docusate Sodium (Docusate Oral Soln 100 Mg/10 Ml Cup) 100 mg PEG/G-TUBE BID@0900,1700 [facility] Last Admin: 06/25/21 17:14 Dose: 100 mg Documented by: Furosemide (Furosemide 20 Mg Tab) 20 mg PO DAILY@0900 [facility] Last Admin: 06/25/21 07:30 Dose: Not Given Documented by: Ibuprofen (Ibuprofen Oral Susp 100 Mg/5 Ml Cup) 200 mg PEG/G-TUBE QID@0000,0600,12,18 [facility] Last Admin: 06/25/21 23:26 Dose: 200 mg Documented by: Megestrol Acetate (Megestrol 400 Mg/10 Ml Cup) 400 mg PEG/G-TUBE DAILY@0900 [facility] Memantine (Memantine 10 Mg Tab) 10 mg PO BID@0900,2100 [facility] Last Admin: 06/25/21 21:32 Dose: 10 mg Documented by: Metoprolol Succinate (Metoprolol Succinate (Er) 50 Mg Tab.Er.24h) 50 mg PO HS@2100 [facility] Last Admin: 06/25/21 21:32 Dose: 50 mg Documented by: Miscellaneous Information (Potassium Replacement Protocol 1 Each Misc) 1 each MISCELLANE DAILY PRN; Protocol PRN Reason: Per Protocol Naloxone HCl (Naloxone 0.4 Mg/Ml 1 Ml Vial) 0.2 mg IV Q2M PRN PRN Reason: Opioid Reversal Pantoprazole Sodium (Pantoprazole 40 Mg Tablet) 40 mg PO DAILY@0600 [facility] Last Admin: 06/25/21 04:28 Dose: Not Given Documented by: Polyethylene Glycol (Polyethylene Glycol 3350 17 Gm Powd.Pack) 17 gm PO DAILY@0900 [facility] Last Admin: 06/25/21 07:30 Dose: Not Given Documented by: Potassium Chloride (Potassium Chloride Er 10 Meq Tab.Er.Prt) 10 meq PO DAILY@0900 [facility] Last Admin: 06/25/21 07:30 Dose: Not Given Documented by: Quetiapine Fumarate (Quetiapine 25 Mg Tab) 12.5 mg PO HS PRN PRN Reason: Agitation Last Admin: 06/25/21 23:25 Dose: 12.5 mg Documented by: Tramadol HCl (Tramadol 50 Mg Tab) 50 mg PO Q4HR PRN PRN Reason: Pain Objective - Vital Signs Vital signs: Vital Signs Temp 97.8 F 06/25/21 08:00 Pulse 87 06/25/21 09:59 Resp 16 06/25/21 08:00 BP 157/81 06/25/21 09:59 Pulse Ox 92 L 06/25/21 08:00 Intake & Output 06/24/21 06/25/21 06/25/21 18:59 06:59 18:59 Intake Total 20 100 Output Total 250 50 Balance -250 -30 100 Intake: IV 100 Oral 20 Output: Urine 250 50 Other: Voiding Method External Catheter External Catheter External Catheter # Voids 1 # Bowel Movements 1 - Exam PHYSICAL EXAMINATION: GENERAL: The patient is alert and oriented x1-2, continued lethargy. HEENT: Pupils are round and equally reacting to light. CARDIOVASCULAR: S1 and S2 muffled. PULMONARY: diminished breath sounds bilaterally with no wheezing or crackles. ABDOMEN: PEG tube in place. MUSCULOSKELETAL: No joint swelling or deformity. EXTREMITIES: No pedal edema. Left shoulder dressing is dry and sling noted Positive tenderness. NEUROLOGICAL: Patient is confused unable to assess clearly doesn't appear to have any focal deficits - Labs CBC & Chem 7: 06/24/21 08:35 06/24/21 08:35 Assessment and Plan Assessment: ASSESSMENT -Metabolic encephalopathy due to KAUR -KAUR secondary to decreased by mouth intake. -possible vancomycin toxicity -Postoperative infection of the left shoulder, status post incision and drainage with removal of hardware with orthopedics with culture showing MRSA -History of dementia baseline is not clear -Hypokalemia -Gastroesophageal reflux disease -Hyperlipidemia -Hypertension -history of seizures PLAN: Patient has been started on IV fluids. Patient refusing to eat and drink. Surgical services have been consulted for PEG tube placement that is done on 06/25/2021. [facility] for the left shoulder infection, we will need to discuss with patient's daughter regarding the goals of treatment. She wants her to be treated for the infection, and so ID Dr. Edmondson consulted. We will continue with the current medication regimen. Overall prognosis is poor because of multiple chronic complex medical conditions. Further recommendations depending on the progress of the patient.
[2021-06-26] MEDS: IBUPROFEN ORAL SUSP 100 MG/5 ML CUP PEG/G-TUBE SCH ×2 (06:17→14:00)
[2021-06-26] MEDS: PANTOPRAZOLE 40 MG TABLET PO SCH (06:19)
[2021-06-26] MEDS: polyethylene glycoL 3350 17 GM POWD.PACK PO SCH (07:48)
[2021-06-26] MEDS: CHOLESTYRAMINE (WITH SUGAR) 4 GM PACKET PO SCH (07:49)
[2021-06-26] MEDS: MEGESTROL 400 MG/10 ML CUP PEG/G-TUBE SCH ×2 (07:49→09:36)
[2021-06-26] MEDS: POTASSIUM CHLORIDE ER 10 MEQ TAB.ER.PRT PO SCH (07:49)
[2021-06-26] MEDS: FUROSEMIDE 20 MG TAB PO SCH (07:49)
[2021-06-26] MEDS: MEMANTINE 10 MG TAB PO SCH ×2 (07:49→21:41)
[2021-06-26] MEDS ORDERED: VANCOMYCIN IV PER PHARMACY 1 EACH MISC MISCELLANE PRN (08:25)
--- NOTE | 2021-06-26 08:27 | P.CONS ---
History of Present Illness - Reason for Consult Consult date: 06/25/21 Left shoulder abscess MRSA Requesting physician: Silvia Brown - Chief Complaint Decrease oral intake x few days - History of Present Illness Patient is 81-year female with recent admission to this facility for any left shoulder infection after a fracture repair this patient who status post removal of the hardware drainage of the abscess culture positive for MRSA patient did have a PICC line and she was advised vancomycin for a total of 6 weeks patient was subsequently brought back to the hospital from the nursing facility for PEG tube placement as the patient not been eating or drinking power of securities attorney wanted her transferred here so the patient could have a PEG tube placed patient has been evaluated by general surgery and patient did have a PEG tube placement this morning patient has been afebrile during this admission did have a normal white count creatinine was mildly elevated on admission subsequent normalized urine was mildly positive, infectious disease was consulted because of ongoing infection to the left shoulder area and management of antibiotic therapy most information has been obtained from review the chart and talking to nursing staff the patient did not provide any history Review of Systems Positive points has been mentioned in HPI complete review could not be obtained because of his underlying mental status Past Medical History Past Medical History: Dementia, GERD/Reflux, Hyperlipidemia, Hypertension, Seizure Disorder Additional Past Medical History / Comment(s): urinay tract infection, History of Any Multi-Drug Resistant Organisms: MRSA Year Discovered:: 06/16/21 MDRO Source:: MRSA SHOULDER Past Surgical History: Orthopedic Surgery Additional Past Surgical History / Comment(s): right humerous fx repair Past Anesthesia/Blood Transfusion Reactions: Unable to Obtain Past Psychological History: Unable to Obtain, Depression Smoking Status: Unknown if ever smoked Medications and Allergies Home Medications Medication Instructions Recorded Confirmed Type Acetaminophen [Tylenol] 500 mg PO Q6H PRN 06/15/21 06/23/21 History Atorvastatin [Lipitor] 40 mg PO HS@209906/15/21 06/23/21 History Cholestyramine (with Sugar) 4 gm PO DAILY@0900 06/15/21 06/23/21 History [Questran Packet] Docusate [Colace] 100 mg PO BID@0900,1700 06/15/21 06/23/21 History Memantine [Namenda] 10 mg PO BID@0900,2100 06/15/21 06/23/21 History Metoprolol Succinate [Toprol XL] 50 mg PO HS@2100 06/15/21 06/23/21 History Omeprazole 20 mg PO DAILY@0600 06/15/21 06/23/21 History Polyethylene Glycol 3350 [Miralax] 17 gm PO DAILY@0900 06/15/21 06/23/21 History QUEtiapine [SEROquel] 12.5 mg PO HS PRN tab 06/22/21 06/23/21 Rx Furosemide [Lasix] 20 mg PO DAILY@0906/23/21 06/23/21 History Ibuprofen [Advil] 200 mg PO QID@0000,0600,12,18 06/23/21 06/23/21 History Megestrol [Megace] 400 mg PO DAILY@0900 06/23/21 06/23/21 History Potassium Bicarbonate/Cit AC 10 meq PO DAILY@0900 06/23/21 06/23/21 History [K-Lyte] traMADol HCL [Ultram] 50 mg PO Q4HR PRN 06/23/21 06/23/21 History Allergies Allergy/AdvReac Type Severity Reaction Status Date / Time bupropion Allergy Unknown Verified 06/23/21 17:33 codeine Allergy Unknown Verified 06/23/21 17:33 fentanyl Allergy Unknown Verified 06/23/21 17:33 metoclopramide Allergy Unknown Verified 06/23/21 17:33 midazolam Allergy Unknown Verified 06/23/21 17:33 morphine Allergy Unknown Verified 06/23/21 17:33 nitrofurantoin Allergy Unknown Verified 06/23/21 17:33 simvastatin Allergy Unknown Verified 06/23/21 17:33 Physical Exam Vitals: Vital Signs Temp Pulse Resp BP Pulse Ox 06/25/21 09:59 87 157/81 06/25/21 09:44 171/82 06/25/21 09:14 81 173/87 06/25/21 08:59 74 169/80 06/25/21 08:44 77 166/86 06/25/21 08:00 97.8 F 84 16 161/88 92 L 06/25/21 02:00 97.7 F 78 16 151/72 92 L 06/24/21 20:00 98.4 F 95 16 166/69 06/24/21 14:00 97.4 F L 80 16 148/83 93 L Intake and Output 06/24/21 06/25/21 06/25/21 22:59 06:59 14:59 Intake Total 20 100 Output Total 250 50 Balance -230 -50 100 Intake: IV 100 Oral 20 Output: Urine 250 50 Other: Voiding Method External Catheter # Voids 1 1 # Bowel Movements 1 1 GENERAL DESCRIPTION: An elderly female lying in bed, no distress. No tachypnea or accessory muscle of respiration use. HEENT: Shows Pallor , no scleral icterus. Oral mucous membrane is dry. No pharyngeal erythema or thrush NECK: Trachea central, no thyromegaly. LUNGS: Unlabored breathing. Clear to auscultation anteriorly. No wheeze or crackle. HEART: S1, S2, regular rate and rhythm. No loud murmur ABDOMEN: Soft, no tenderness , guarding or rigidity, no organomegaly EXTREMITIES: No edema of feet. SKIN: No rash, no masses palpable. Left shoulder is currently dressed no drainage of the dressing NEUROLOGICAL: The patient is awake, pleasantly confused oriented couldn't be determined. Results CBC & Chem 7: 06/24/21 08:35 06/24/21 08:35 Labs: Abnormal Lab Results - Last 24 Hours (Table) 06/24/21 Range/Units 08:35 Chloride 110 H (96-109) mmol/L Est GFR (CKD-EPI)AfAm 54.1 L (60.0-200.0) Est GFR (CKD-EPI)NonAf 46.7 L (60.0-200.0) Calcium 8.3 L (8.7-10.3) mg/dL Assessment and Plan Assessment: -patient with recent admission to the hospital for a left shoulder infection with infected hardware status post removal of hardware and drainage of the abscess culture positive for MRSA blood culture were negative now admitted to the hospital for elective placement because of decreased oral intake (1) Infection of shoulder Current Visit: No Status: Acute Code(s): M00.9 - PYOGENIC ARTHRITIS, UNSPECIFIED SNOMED Code(s): 434767021 Plan: 1-vancomycin pharmacy to dose her with a target trough of 15 while watching her kidney function and Vanco trough closely. 2-CRP and sed rate We will follow on clinical condition and cultures to further adjust medication if needed Thank you for this consultation we will follow the patient along with you
[2021-06-26] MEDS ORDERED: VANCOMYCIN 1,250 MG in SODIUM CHLORIDE 0.9% 250 ML IVPB ONE (09:00)
[2021-06-26 09:06] LABS: Basophils # (A) 0.04 X 10*3/uL (0.00-0.10); Basophils % (A) 0.4 %; Eosinophils # (A) 0.32 X 10*3/uL (0.04-0.35); Eosinophils % (A) 3.5 %; HCT 28.2 % (37.2-46.3); HGB 8.4 g/dL (12.0-15.0); Lymphocytes # (A) 2.03 X 10*3/uL (0.90-5.00); Lymphocytes % (A) 22.3 %; MCH 29.8 pg (27.0-32.0); MCHC 29.8 g/dL (32.0-37.0); Mean Platelet Volume 10.1 fL (9.5-12.2); Monocytes # (A) 1.03 X 10*3/uL (0.20-1.00); Monocytes % (A) 11.3 %; Neutrophils # (A) 5.59 X 10*3/uL (1.80-7.70); Neutrophils % (A) 61.6 %; Platelet Count 330 X 10*3/uL (140-440); RBC 2.82 X 10*6/uL (4.10-5.20); RDW 15.4 % (11.5-14.5); WBC 9.09 X 10*3/uL (4.50-10.00)
[2021-06-26] MEDS: DOCUSATE ORAL SOLN 100 MG/10 ML CUP PEG/G-TUBE SCH ×2 (09:36→17:33)
--- NOTE | 2021-06-26 11:29 | P.PN ---
<Victor HugoViviana - Last Filed: 06/26/21 11:25> Subjective Progress Note Date: 06/26/21 CHIEF COMPLAINT: Malnutrition HISTORY OF PRESENT ILLNESS: Patient is status post EGD and PEG tube placement. She denies any pain at PEG tube site. No nausea or vomiting. Afebrile. She is complaining of pain in the left shoulder. She reports the shoulder pain is better than yesterday. WBC is 9.09 hemoglobin 8.4 platelets 330 albumin 2.8 PHYSICAL EXAM: VITAL SIGNS: Reviewed. GENERAL: Well-developed in no acute distress. HEENT: No sclera icterus. Extraocular movements grossly intact. Moist buccal mucosa. Head is atraumatic, normocephalic. ABDOMEN: Soft. Nondistended. Nontender. PEG tube site clean dry and intact NEUROLOGIC: Alert and oriented. Cranial nerves II through XII grossly intact. ASSESSMENT: 1. Severe protein calorie malnutrition status post EGD and PEG tube placement PLAN: -Consult dietitian to start PEG tube feedings -Continue supportive care Physician [employer] Supervisor note has been reviewed by physician. Signing provider agrees with the documented findings, assessment, and plan of care. Objective - Vital Signs Vital signs: Vital Signs Temp 99.1 F 06/26/21 08:00 Pulse 79 06/26/21 08:00 Resp 16 06/26/21 08:00 BP 154/66 06/26/21 08:00 Pulse Ox 100 06/26/21 08:33 Intake & Output 06/25/21 06/26/21 06/26/21 18:59 06:59 18:59 Intake Total 640 Balance 640 Intake: IV 100 Oral 540 Other: Voiding Method External Catheter External Catheter # Voids 2 2 # Bowel Movements 1 - Labs CBC & Chem 7: 06/26/21 06:04 06/24/21 08:35 Labs: Abnormal Lab Results - Last 24 Hours (Table) 06/26/21 Range/Units 06:04 RBC 2.82 L (4.10-5.20) X 10*6/uL Hgb 8.4 L (12.0-15.0) g/dL Hct 28.2 L (37.2-46.3) % MCV 100.0 H (80.0-97.0) fL MCHC 29.8 L (32.0-37.0) g/dL RDW 15.4 H (11.5-14.5) % Absolute Nucleated RBC 0.02 H (0.00-0.00) X 10*3/uL Immature Gran # 0.08 H (0.00-0.04) X 10*3/uL Monocytes # 1.03 H (0.20-1.00) X 10*3/uL NRBC/100 WBC Diff 0.2 H (0.0-0.0) /100 WBCS <Chapito Newman - Last Filed: 06/26/21 11:58> Subjective As above. Patient doing better today. Mild tenderness at PEG tube site. May begin tube feeds. Objective - Vital Signs Vital signs: Vital Signs Temp 99.1 F 06/26/21 08:00 Pulse 79 06/26/21 08:00 Resp 16 06/26/21 08:00 BP 154/66 06/26/21 08:00 Pulse Ox 100 06/26/21 08:33 Intake & Output 06/25/21 06/26/21 06/26/21 18:59 06:59 18:59 Intake Total 640 Balance 640 Intake: IV 100 Oral 540 Other: Voiding Method External Catheter External Catheter # Voids 2 2 # Bowel Movements 1 - Labs CBC & Chem 7: 06/26/21 06:04 06/24/21 08:35 Labs: Abnormal Lab Results - Last 24 Hours (Table) 06/26/21 Range/Units 06:04 RBC 2.82 L (4.10-5.20) X 10*6/uL Hgb 8.4 L (12.0-15.0) g/dL Hct 28.2 L (37.2-46.3) % MCV 100.0 H (80.0-97.0) fL MCHC 29.8 L (32.0-37.0) g/dL RDW 15.4 H (11.5-14.5) % Absolute Nucleated RBC 0.02 H (0.00-0.00) X 10*3/uL Immature Gran # 0.08 H (0.00-0.04) X 10*3/uL Monocytes # 1.03 H (0.20-1.00) X 10*3/uL NRBC/100 WBC Diff 0.2 H (0.0-0.0) /100 WBCS Assessment and Plan (1) Protein-calorie malnutrition, moderate Current Visit: Yes Status: Acute Code(s): E44.0 - MODERATE PROTEIN-CALORIE MALNUTRITION SNOMED Code(s): 566128308
[2021-06-26 12:23] LABS: African American GFR (CKD) 48.7 (60.0-200.0); Anion Gap 12.9 mmol/L (4.00-12.00); BUN/Creat Ratio 10.83 Ratio (12.00-20.00); Calcium 7.9 mg/dL (8.7-10.3); Carbon Dioxide 22.1 mmol/L (21.6-31.8); Non-African American GFR(CKD) 42.1 (60.0-200.0); Potassium 3.1 mmol/L (3.5-5.5)
--- NOTE | 2021-06-26 13:30 | PN ---
PROGRESS NOTE DATE OF SERVICE: 06/26/2021 REASON FOR FOLLOWUP: Left shoulder infection and MRSA. INTERVAL HISTORY: The patient is afebrile. The patient seems to be slightly more awake and alert today; however, not a very good historian. No vomiting, diarrhea or other changes reported by the nursing staff. PHYSICAL EXAMINATION: Blood pressure 154/66, pulse of 79, temperature 99.1. She is 96% on 2 L nasal cannula. GENERAL DESCRIPTION: General description is an elderly female lying in bed in no distress. RESPIRATORY SYSTEM: Unlabored breathing. Clear to auscultation anteriorly. HEART: S1, S2. Regular rate and rhythm. ABDOMEN: Soft. No tenderness. Left shoulder is currently dressed up. No obvious drainage on the dressing. LABS: Hemoglobin is 8.4, white count 9.0, BUN of 13, creatinine 1.2. DIAGNOSTIC IMPRESSION AND PLAN: Patient with left shoulder infection with infected hardware which was removed on last admission. Culture was positive for MRSA. Blood culture negative. Patient at this time to continue vancomycin; however, daptomycin may be better in the outpatient setting to decrease the risk of nephrotoxicity. MMODL / IJN: [id number] /
[2021-06-26] MEDS: IBUPROFEN ORAL SUSP 2,400 MG/120 ML BOTTLE PEG/G-TUBE SCH (17:33)
[2021-06-26] MEDS: METOPROLOL SUCCINATE (ER) 50 MG TAB.ER.24H PO SCH (21:41)
[2021-06-26] MEDS: ATORVASTATIN 40 MG TAB PO SCH (21:41)
[2021-06-27] MEDS: IBUPROFEN ORAL SUSP 2,400 MG/120 ML BOTTLE PEG/G-TUBE SCH ×4 (04:47→17:15)
[2021-06-27] MEDS: PANTOPRAZOLE 40 MG TABLET PO SCH (05:03)
[2021-06-27] MEDS: FUROSEMIDE 20 MG TAB PO SCH (09:59)
[2021-06-27] MEDS: MEMANTINE 10 MG TAB PO SCH ×2 (09:59→20:08)
[2021-06-27] MEDS: CHOLESTYRAMINE (WITH SUGAR) 4 GM PACKET PO SCH (09:59)
[2021-06-27] MEDS: POTASSIUM CHLORIDE ER 10 MEQ TAB.ER.PRT PO SCH (09:59)
[2021-06-27] MEDS: polyethylene glycoL 3350 17 GM POWD.PACK PO SCH (09:59)
[2021-06-27] MEDS: DOCUSATE ORAL SOLN 100 MG/10 ML CUP PEG/G-TUBE SCH ×2 (10:00→17:15)
--- NOTE | 2021-06-27 11:00 | P.PN ---
<Viviana Gay - Last Filed: 06/27/21 10:57> Subjective Progress Note Date: 06/27/21 CHIEF COMPLAINT: Malnutrition HISTORY OF PRESENT ILLNESS: Patient is status post EGD and PEG tube placement. She denies any pain at PEG tube site. No nausea or vomiting. 2 feeding started yesterday. Patient did have 5 mL residual of tube feeds. Patient tolerating tube feedings. She reports that her shoulder is starting to feel better. Patient had difficulty swallowing her Jell-O and clear liquids yesterday. Their concerns for aspiration. She was made nothing by mouth. Speech therapy consult was placed. Afebrile. Labs for today are pending PHYSICAL EXAM: VITAL SIGNS: Reviewed. GENERAL: Well-developed in no acute distress. HEENT: No sclera icterus. Extraocular movements grossly intact. Moist buccal mucosa. Head is atraumatic, normocephalic. ABDOMEN: Soft. Nondistended. Nontender. PEG tube site clean dry and intact NEUROLOGIC: Alert and oriented. Cranial nerves II through XII grossly intact. ASSESSMENT: 1. Severe protein calorie malnutrition status post EGD and PEG tube placement PLAN: -Continue to titrate tube feedings to goal -Continue supportive care -Speech therapy consulted for swallow evaluation Physician [employer] Chief Experience Officer note has been reviewed by physician. Signing provider agrees with the documented findings, assessment, and plan of care. Objective - Vital Signs Vital signs: Vital Signs Temp 97.8 F 06/27/21 01:41 Pulse 73 06/27/21 01:41 Resp 16 06/27/21 01:41 BP 163/74 06/27/21 01:41 Pulse Ox 98 06/27/21 01:41 Intake & Output 06/26/21 06/27/21 06/27/21 18:59 06:59 18:59 Weight 68.039 kg Other: Voiding Method External Catheter External Catheter # Voids 4 - Labs CBC & Chem 7: 06/26/21 06:04 06/26/21 06:04 Labs: Abnormal Lab Results - Last 24 Hours (Table) 06/26/21 Range/Units 06:04 Potassium 3.1 L (3.5-5.5) mmol/L Chloride 110 H (96-109) mmol/L Anion Gap 12.90 H (4.00-12.00) mmol/L Est GFR (CKD-EPI)AfAm 48.7 L (60.0-200.0) Est GFR (CKD-EPI)NonAf 42.1 L (60.0-200.0) BUN/Creatinine Ratio 10.83 L (12.00-20.00) Ratio Calcium 7.9 L (8.7-10.3) mg/dL <Chapito Newman - Last Filed: 06/27/21 16:04> Subjective As above. Patient doing well today. Tolerating tube feeds at goal. I will be out of town until Saturday. Dr. See will be covering me. We'll sign off. Please contact our service if needed. Objective - Vital Signs Vital signs: Vital Signs Temp 99.5 F 06/27/21 15:28 Pulse 72 06/27/21 15:28 Resp 17 06/27/21 15:28 BP 146/77 06/27/21 15:28 Pulse Ox 98 06/27/21 15:28 Intake & Output 06/26/21 06/27/21 06/27/21 18:59 06:59 18:59 Weight 68.039 kg Other: Voiding Method External Catheter External Catheter # Voids 4 1 - Labs CBC & Chem 7: 06/26/21 06:04 06/26/21 06:04 Labs: Abnormal Lab Results - Last 24 Hours (Table) 06/27/21 Range/Units 07:08 ESR 65 H (0-30) mm/Hr Assessment and Plan (1) Protein-calorie malnutrition, moderate Current Visit: Yes Status: Acute Code(s): E44.0 - MODERATE PROTEIN-CALORIE MALNUTRITION SNOMED Code(s): 855208197
[2021-06-27] MEDS: traMADol 50 MG TAB PO PRN ×2 (11:17→20:10)
--- NOTE | 2021-06-27 15:17 | PN ---
PROGRESS NOTE DATE OF SERVICE: 06/27/2021 REASON FOR FOLLOWUP: Left shoulder MRSA abscess and septic arthritis. INTERVAL HISTORY: The patient is afebrile. The patient is more awake and alert today. She is breathing comfortably. Denies having any chest pain or cough. Complaining of pain to the left shoulder area. No vomiting or diarrhea reported by the nursing staff. PHYSICAL EXAMINATION: Blood pressure 153/78 with a pulse of 70, temperature 97.8. She is 96% on 2 L nasal cannula. GENERAL DESCRIPTION: General description is an elderly female lying in bed in no distress. RESPIRATORY SYSTEM: Unlabored breathing. Clear to auscultation anteriorly. HEART: S1, S2. Regular rate and rhythm. ABDOMEN: Soft. No tenderness. Left foot is currently dressed. No drainage on the dressing. LABS: Hemoglobin is 8.4, white count 9.09, creatinine 1.2. DIAGNOSTIC IMPRESSION: Patient with a left shoulder infection with infected hardware which has been removed. Culture with MRSA. Blood cultures were negative. Patient is on vancomycin. capacity manager to see if the patient can get daptomycin in the outpatient setting. That may be safer for her kidneys. Plan is another 4 weeks of antibiotic therapy. MMODL / IJN: [id number] /
[2021-06-27] MEDS: ATORVASTATIN 40 MG TAB PO SCH (20:08)
[2021-06-27] MEDS: METOPROLOL SUCCINATE (ER) 50 MG TAB.ER.24H PO SCH (20:08)
[2021-06-27] MEDS: QUEtiapine 25 MG TAB PO PRN (20:10)
--- NOTE | 2021-06-27 23:11 | P.PN ---
Subjective Ms. Lizarraga is a 81-year-old female with a past medical history of dementia, GERD, hypertension, seizure disorder, history of MRSA, living in [place] area was admitted to the hospital for mental status changes possibly secondary to vancomycin toxicity. Patient has infection of the left shoulder, had surgical removal of hardware and treated for MRSA infection of the joint, sent to rehab on vancomycin, patient continued to be confused and so transferred to [facility] for further evaluation. The patient has very poor intake, confused and unable to provide any history. On reviewing the previous records, the patient was then discharged from the hospital last week to [facility] with instructions not to return to the hospital and for possible comfort measures discussion. She was transferred from the facility for decreased by mouth intake and PEG tube placement as requested by power of disability attorney. 06/27/21 Patient still confused which looks similar to her baseline and similar to last admission when I discussed with the staff for taking, her last time and today, also per my discussion with other consultants. However patient looks, and she denies any specific complaint. At this post PEG tube placed by surgery team on 06/23. Hemodynamically stable, labs reviewed, patient is with elevated pro-calcitonin and 0.9 and elevated ESR at 65. Infectious disease on the case and the recommend IV vancomycin which could be switched to daptomycin upon discharge for kidney protection, she had patient will need for more weeks of IV antibiotics Objective - Vital Signs Vital signs: Vital Signs Temp 97.8 F 06/27/21 11:18 Pulse 70 06/27/21 11:18 Resp 17 06/27/21 11:18 BP 153/78 06/27/21 11:18 Pulse Ox 99 06/27/21 12:00 Intake & Output 06/26/21 06/27/21 06/27/21 18:59 06:59 18:59 Weight 68.039 kg Other: Voiding Method External Catheter External Catheter # Voids 4 - Exam -GENERAL: The patient is alert and calm pleasant but confused, not in any acute distress. Well developed, well nourished. HEENT: Pupils are round and equally reacting to light. EOMI. No scleral icterus. No conjunctival pallor. Normocephalic, atraumatic. No pharyngeal erythema. No thyromegaly. CARDIOVASCULAR: S1 and S2 present. No murmurs, rubs, or gallops. PULMONARY: Chest is clear to auscultation, no wheezing or crackles. ABDOMEN: Soft, nontender, nondistended, normoactive bowel sounds. No palpable organomegaly. PEG tube is in place MUSCULOSKELETAL: No joint swelling or deformity. EXTREMITIES: No cyanosis, clubbing, or pedal edema. NEUROLOGICAL: Gross neurological examination did not reveal any focal deficits. SKIN: No rashes. no petechiae. - Labs CBC & Chem 7: 06/26/21 06:04 06/26/21 06:04 Labs: Abnormal Lab Results - Last 24 Hours (Table) 06/27/21 Range/Units 07:08 ESR 65 H (0-30) mm/Hr Assessment and Plan Assessment: Left shoulder infection, status post hardware removal. Micro-Kerrison: MRSA. 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 He'll need for more weeks of IV antibiotic Monitor kidney function manager group home to check availablity of daptomycin upon discharge Labs and medication were reviewed.. Continue same treatment. Continue with symptomatic treatment. Resume home medication. Monitor lytes and vitals. DVT and GI prophylaxis. Further recommendationsas per clinical course of the patient DVT prophylaxis: Subcutaneous heparin GI Prophylaxis: Pepcid Prognosis is guarded
[2021-06-28] MEDS: HEPARIN SODIUM,PORCINE/PF 5,000 UNIT/0.5 ML SYRINGE SQ SCH ×3 (01:23→21:18)
[2021-06-28] MEDS: IBUPROFEN ORAL SUSP 2,400 MG/120 ML BOTTLE PEG/G-TUBE SCH ×4 (01:23→17:56)
[2021-06-28 03:40] LABS: African American GFR (CKD) 60.8 (60.0-200.0); C Reactive Protein 2.3 mg/dL (0.0-0.8); Calcium 7.7 mg/dL (8.7-10.3); Magnesium 1.7 mg/dL (1.5-2.4); Non-African American GFR(CKD) 52.4 (60.0-200.0); Potassium 2.9 mmol/L (3.5-5.5)
[2021-06-28] MEDS: PANTOPRAZOLE 40 MG TABLET PO SCH (04:52)
[2021-06-28 06:52] LABS: African American GFR (CKD) 68 (>60 ml/min/1.73 sqM); Anion Gap 10 mmol/L; Blood Urea Nitrogen 12 mg/dL (7-17); Calcium 7.9 mg/dL (8.4-10.2); Carbon Dioxide 20 mmol/L (22-30); Chloride 109 mmol/L (98-107); Glucose 119 mg/dL (74-99); Non-African American GFR(CKD) 59 (>60 ml/min/1.73 sqM); Potassium 3.1 mmol/L (3.5-5.1); Sodium 139 mmol/L (137-145)
[2021-06-28] MEDS: DOCUSATE ORAL SOLN 100 MG/10 ML CUP PEG/G-TUBE SCH ×2 (08:23→17:56)
[2021-06-28] MEDS: MEMANTINE 10 MG TAB PO SCH ×2 (08:23→21:18)
[2021-06-28] MEDS: polyethylene glycoL 3350 17 GM POWD.PACK PO SCH (08:23)
[2021-06-28] MEDS: POTASSIUM CHLORIDE ER 10 MEQ TAB.ER.PRT PO SCH (08:23)
[2021-06-28] MEDS: MEGESTROL 400 MG/10 ML CUP PEG/G-TUBE SCH (08:23)
[2021-06-28] MEDS: FUROSEMIDE 20 MG TAB PO SCH (08:23)
[2021-06-28] MEDS ORDERED: VANCOMYCIN 1,250 MG in SODIUM CHLORIDE 0.9% 250 ML IVPB SCH (09:00)
[2021-06-28 09:18] LABS: Appearance,Urine Cloudy (Clear); Bilirubin,Urine Negative (Negative); Blood,Urine Trace (Negative); Budding Yeast,Urine Many /hpf; Color,Urine Yellow; Glucose,Urine (UA) Negative (Negative); Hyaline Casts,Urine 14 /lpf (0-2); Ketones,Urine Negative (Negative); Leukocyte Esterase,Urine Large (Negative); Mucus,Urine Moderate /hpf; Nitrite,Urine Negative (Negative); PH, Urine 5.5 (5.0-8.0); Protein,Urine 1+ (Negative); RBC,Urine 19 /hpf (0-5); Specific Gravity,Urine 1.017 (1.001-1.035); Squamous Epithelial Cell,Urine 2 /hpf (0-4); Urobilinogen,Urine <2.0 mg/dL (<2.0); WBC,Urine >182 /hpf (0-5)
[2021-06-28] MEDS: CHOLESTYRAMINE (WITH SUGAR) 4 GM PACKET PO SCH (10:12)
[2021-06-28] MEDS ORDERED: LEVOFLOXACIN 500MG-D5W PMX 500 MG in DEXTROSE/WATER 1 100ML.BAG IVPB STA (13:19)
--- NOTE | 2021-06-28 13:34 | P.PN ---
Subjective Ms. Lizarraga is a 81-year-old female with a past medical history of dementia, GERD, hypertension, seizure disorder, history of MRSA, living in [place] area was admitted to the hospital for mental status changes possibly secondary to vancomycin toxicity. Patient has infection of the left shoulder, had surgical removal of hardware and treated for MRSA infection of the joint, sent to rehab on vancomycin, patient continued to be confused and so transferred to [facility] for further evaluation. The patient has very poor intake, confused and unable to provide any history. On reviewing the previous records, the patient was then discharged from the hospital last week [facility] with instructions not to return to the hospital and for possible comfort measures discussion. She was transferred from the facility for decreased by mouth intake and PEG tube placement as requested by power of assistant district attorney. 06/27/21 Patient still confused which looks similar to her baseline and similar to last admission when I discussed with the staff for taking, her last time and today, also per my discussion with other consultants. However patient looks, and she denies any specific complaint. At this post PEG tube placed by surgery team on 06/23. Hemodynamically stable, labs reviewed, patient is with elevated pro-calcitonin and 0.9 and elevated ESR at 65. Infectious disease on the case and the recommend IV vancomycin which could be switched to daptomycin upon discharge for kidney protection, she had patient will need for more weeks of IV antibiotics 06/28/2021 More confused and sleepy today, she has about her 300 mL in her urinary retention, status post straight cath, turbid in color and urine analysis is suspicious for infection Operative urine culture Levaquin 1, check EKG Infectious disease team on the case Discussed with the staff Objective - Vital Signs Vital signs: Vital Signs Temp 98.0 F 06/28/21 07:45 Pulse 78 06/28/21 07:45 Resp 16 06/28/21 07:45 BP 160/77 06/28/21 07:45 Pulse Ox 97 06/28/21 09:01 Intake & Output 06/27/21 06/28/21 06/28/21 18:59 06:59 18:59 Output Total 0 600 Balance 0 -600 Weight 59.5 kg 56 kg Output: Urine 600 Straight 300 Post Void Residual 0 Other: Voiding Method External Catheter # Voids 1 - Exam -GENERAL: The patient is lethargic, drowsy and confused, not in any acute distress. Well developed, well nourished. HEENT: Pupils are round and equally reacting to light. EOMI. No scleral icterus. No conjunctival pallor. Normocephalic, atraumatic. No pharyngeal erythema. No thyromegaly. CARDIOVASCULAR: S1 and S2 present. No murmurs, rubs, or gallops. PULMONARY: Chest is clear to auscultation, no wheezing or crackles. ABDOMEN: Soft, nontender, nondistended, normoactive bowel sounds. No palpable organomegaly. PEG tube is in place MUSCULOSKELETAL: No joint swelling or deformity. EXTREMITIES: No cyanosis, clubbing, or pedal edema. NEUROLOGICAL: Gross neurological examination did not reveal any focal deficits. SKIN: No rashes. no petechiae. - Labs CBC & Chem 7: 06/26/21 06:04 06/28/21 06:20 Labs: Abnormal Lab Results - Last 24 Hours (Table) 06/27/21 06/27/21 06/27/21 Range/Units 07:08 07:08 07:08 ESR 65 H (0-30) mm/Hr Potassium 2.9 L (3.5-5.5) mmol/L Chloride (98-107) mmol/L Carbon Dioxide (22-30) mmol/L Est GFR (CKD-EPI)NonAf 52.4 L (60.0-200.0) Glucose 137 H (70-110) mg/dL Calcium 7.7 L (8.7-10.3) mg/dL C-Reactive Protein 2.3 H (0.0-0.8) mg/dL Procalcitonin 0.90 H (0.02-0.09) ng/mL Urine Appearance (Clear) Urine Protein (Negative) Urine Blood (Negative) Ur Leukocyte Esterase (Negative) Urine RBC (0-5) /hpf Urine WBC (0-5) /hpf Hyaline Casts (0-2) /lpf Urine Mucus (None) /hpf Urine Yeast (Budding) (None) /hpf 06/28/21 06/28/21 Range/Units 06:20 07:50 ESR (0-30) mm/Hr Potassium 3.1 L (3.5-5.5) mmol/L Chloride 109 H (98-107) mmol/L Carbon Dioxide 20 L (22-30) mmol/L Est GFR (CKD-EPI)NonAf (60.0-200.0) Glucose 119 H (70-110) mg/dL Calcium 7.9 L (8.7-10.3) mg/dL C-Reactive Protein (0.0-0.8) mg/dL Procalcitonin (0.02-0.09) ng/mL Urine Appearance Cloudy H (Clear) Urine Protein 1+ H (Negative) Urine Blood Trace H (Negative) Ur Leukocyte Esterase Large H (Negative) Urine RBC 19 H (0-5) /hpf Urine WBC >182 H (0-5) /hpf Hyaline Casts 14 H (0-2) /lpf Urine Mucus Moderate H (None) /hpf Urine Yeast (Budding) Many H (None) /hpf Assessment and Plan Assessment: Left shoulder infection, status post hardware removal. Micro-Kerrison: MRSA. 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 He'll need for more weeks of IV antibiotic Monitor kidney function Levaquin 1 and follow-up with ID team for UTI category manager to check availablity of daptomycin upon discharge Labs and medication were reviewed.. Continue same treatment. Continue with symptomatic treatment. Resume home medication. Monitor lytes and vitals. DVT and GI prophylaxis. Further recommendationsas per clinical course of the patient DVT prophylaxis: Subcutaneous heparin GI Prophylaxis: Pepcid Prognosis is guarded
--- NOTE | 2021-06-28 15:09 | PN ---
PROGRESS NOTE DATE OF SERVICE: 06/28/2021 REASON FOR FOLLOWUP: Left shoulder abscess and cellulitis. INTERVAL HISTORY: The patient is afebrile. The patient is breathing comfortably. Denies having any chest pain or cough. Complaining of some pain to the left shoulder area but no worsening, and no diarrhea has been reported by the nursing staff. PHYSICAL EXAMINATION: Blood pressure 160/77, pulse of 78, temperature 98. She is 94% on 2 L nasal cannula. GENERAL DESCRIPTION: General description is an elderly female lying in bed in no distress. RESPIRATORY SYSTEM: Unlabored breathing. Clear to auscultation anteriorly. HEART: S1, S2. Regular rate and rhythm. ABDOMEN: Soft. No tenderness. LABS: BUN of 12, creatinine 0.91. DIAGNOSTIC IMPRESSION AND PLAN: Patient with left shoulder abscess, status post drainage and removal of the hardware. The patient is covered with vancomycin; to continue while monitoring her kidney function closely. Continue with supportive care. MMODL / IJN: [id number] /
[2021-06-28] MEDS: AZTREONAM 1 GM in SODIUM CHLORIDE 0.9% 50 ML IVPB SCH (17:56)
[2021-06-28] MEDS: traMADol 50 MG TAB PO PRN (21:17)
[2021-06-28] MEDS: METOPROLOL SUCCINATE (ER) 50 MG TAB.ER.24H PO SCH (21:18)
[2021-06-28] MEDS: QUEtiapine 25 MG TAB PO PRN (21:18)
[2021-06-28] MEDS: ATORVASTATIN 40 MG TAB PO SCH (21:18)
[2021-06-29] MEDS: IBUPROFEN ORAL SUSP 2,400 MG/120 ML BOTTLE PEG/G-TUBE SCH ×6 (01:17→23:32)
[2021-06-29] MEDS: PANTOPRAZOLE 40 MG TABLET PO SCH (05:16)
[2021-06-29] MEDS: AZTREONAM 1 GM in SODIUM CHLORIDE 0.9% 50 ML IVPB SCH ×2 (05:16→17:36)
[2021-06-29] MEDS: polyethylene glycoL 3350 17 GM POWD.PACK PO SCH (07:49)
[2021-06-29] MEDS: CHOLESTYRAMINE (WITH SUGAR) 4 GM PACKET PO SCH (07:49)
[2021-06-29] MEDS: HEPARIN SODIUM,PORCINE/PF 5,000 UNIT/0.5 ML SYRINGE SQ SCH ×2 (07:49→21:20)
[2021-06-29] MEDS: MEGESTROL 400 MG/10 ML CUP PEG/G-TUBE SCH (07:50)
[2021-06-29] MEDS: MEMANTINE 10 MG TAB PO SCH ×2 (07:50→21:20)
[2021-06-29] MEDS: POTASSIUM CHLORIDE ER 10 MEQ TAB.ER.PRT PO SCH (07:50)
[2021-06-29] MEDS: DOCUSATE ORAL SOLN 100 MG/10 ML CUP PEG/G-TUBE SCH ×2 (07:50→17:36)
[2021-06-29] MEDS: FUROSEMIDE 20 MG TAB PO SCH (07:50)
[2021-06-29] MEDS: VANCOMYCIN 1,250 MG in SODIUM CHLORIDE 0.9% 250 ML IVPB SCH (09:00)
[2021-06-29 11:16] LABS: Basophils # (A) 0.04 X 10*3/uL (0.00-0.10); Basophils % (A) 0.4 %; Eosinophils # (A) 0.43 X 10*3/uL (0.04-0.35); Eosinophils % (A) 4.3 %; HCT 28.8 % (37.2-46.3); HGB 8.3 g/dL (12.0-15.0); Lymphocytes % (A) 23.2 %; MCH 29.4 pg (27.0-32.0); MCHC 28.8 g/dL (32.0-37.0); MCV 102.1 fL (80.0-97.0); Mean Platelet Volume 11.5 fL (9.5-12.2); Monocytes # (A) 1.15 X 10*3/uL (0.20-1.00); Monocytes % (A) 11.6 %; Neutrophils % (A) 59.5 %; Platelet Count 261 X 10*3/uL (140-440); RBC 2.82 X 10*6/uL (4.10-5.20); WBC 9.92 X 10*3/uL (4.50-10.00)
[2021-06-29 13:51] LABS: Anion Gap 10.6 mmol/L (4.00-12.00); BUN/Creat Ratio 15.56 Ratio (12.00-20.00); Calcium 7.6 mg/dL (8.7-10.3); Carbon Dioxide 21.4 mmol/L (21.6-31.8); Non-African American GFR(CKD) 59.5 (60.0-200.0); Potassium 3.4 mmol/L (3.5-5.5)
--- NOTE | 2021-06-29 14:18 | P.PN ---
Subjective Ms. Lizarraga is a 81-year-old female with a past medical history of dementia, GERD, hypertension, seizure disorder, history of MRSA, living in [facility] was admitted to the hospital for mental status changes possibly secondary to vancomycin toxicity. Patient has infection of the left shoulder, had surgical removal of hardware and treated for MRSA infection of the joint, sent to rehab on vancomycin, patient continued to be confused and so transferred to [facility] for further evaluation. The patient has very poor intake, confused and unable to provide any history. On reviewing the previous records, the patient was then discharged from the hospital last week to [facility] with instructions not to return to the hospital and for possible comfort measures discussion. She was transferred from the facility for decreased by mouth intake and PEG tube placement as requested by power of commercial litigation attorney. 06/27/21 Patient still confused which looks similar to her baseline and similar to last admission when I discussed with the staff for taking, her last time and today, also per my discussion with other consultants. However patient looks, and she denies any specific complaint. At this post PEG tube placed by surgery team on 06/23. Hemodynamically stable, labs reviewed, patient is with elevated pro-calcitonin and 0.9 and elevated ESR at 65. Infectious disease on the case and the recommend IV vancomycin which could be switched to daptomycin upon discharge for kidney protection, she had patient will need for more weeks of IV antibiotics 06/28/2021 More confused and sleepy today, she has about her 300 mL in her urinary retention, status post straight cath, turbid in color and urine analysis is suspicious for infection Operative urine culture Levaquin 1, check EKG Infectious disease team on the case Discussed with the staff 06/29/2021 Patient was waking up again today back to her or close to her baseline, after starting her on aztreonam for her UTI. Urine culture is still pending. Yesterday her urine sample was very turbid She remains on IV vancomycin for left shoulder infection Labs are stable Objective - Vital Signs Vital signs: Vital Signs Temp 97.6 F 06/29/21 08:00 Pulse 66 06/29/21 08:00 Resp 16 06/29/21 08:00 BP 143/77 06/29/21 08:00 Pulse Ox 96 06/29/21 08:00 Intake & Output 06/28/21 06/29/21 06/29/21 18:59 06:59 18:59 Intake Total 540 Output Total 600 Balance -600 540 Weight 56 kg 57 kg Intake: Oral 540 Output: Urine 600 Straight 300 Other: Voiding Method External Catheter # Voids 2 # Bowel Movements 1 - Exam -GENERAL: The patient is lethargic, drowsy and confused, not in any acute distress. Well developed, well nourished. HEENT: Pupils are round and equally reacting to light. EOMI. No scleral icterus. No conjunctival pallor. Normocephalic, atraumatic. No pharyngeal erythema. No thyromegaly. CARDIOVASCULAR: S1 and S2 present. No murmurs, rubs, or gallops. PULMONARY: Chest is clear to auscultation, no wheezing or crackles. ABDOMEN: Soft, nontender, nondistended, normoactive bowel sounds. No palpable organomegaly. PEG tube is in place MUSCULOSKELETAL: No joint swelling or deformity. EXTREMITIES: No cyanosis, clubbing, or pedal edema. NEUROLOGICAL: Gross neurological examination did not reveal any focal deficits. SKIN: No rashes. no petechiae. - Labs CBC & Chem 7: 06/29/21 08:21 06/29/21 08:21 Labs: Abnormal Lab Results - Last 24 Hours (Table) 06/29/21 06/29/21 Range/Units 08:21 08:21 RBC 2.82 L (4.10-5.20) X 10*6/uL Hgb 8.3 L (12.0-15.0) g/dL Hct 28.8 L (37.2-46.3) % MCV 102.1 H (80.0-97.0) fL MCHC 28.8 L (32.0-37.0) g/dL RDW 16.0 H (11.5-14.5) % Immature Gran # 0.10 H (0.00-0.04) X 10*3/uL Monocytes # 1.15 H (0.20-1.00) X 10*3/uL Eosinophils # 0.43 H (0.04-0.35) X 10*3/uL Potassium 3.4 L (3.5-5.5) mmol/L Carbon Dioxide 21.4 L (21.6-31.8) mmol/L Est GFR (CKD-EPI)NonAf 59.5 L (60.0-200.0) Glucose 118 H (70-110) mg/dL Calcium 7.6 L (8.7-10.3) mg/dL Microbiology - Last 24 Hours (Table) 06/28/21 07:50 Urine Culture - Preliminary Urine,Voided Assessment and Plan Assessment: Left shoulder infection, status post hardware removal. Micro-Kerrison: MRSA. 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 He'll need for more weeks of IV antibiotic Monitor kidney function Levaquin 1 and follow-up with ID team for UTI manager regional to check availablity of daptomycin upon discharge Labs and medication were reviewed.. Continue same treatment. Continue with symptomatic treatment. Resume home medication. Monitor lytes and vitals. DVT and GI prophylaxis. Further recommendationsas per clinical course of the patient DVT prophylaxis: Subcutaneous heparin GI Prophylaxis: Pepcid Prognosis is guarded
--- NOTE | 2021-06-29 18:16 | PN ---
PROGRESS NOTE DATE OF SERVICE: 06/29/2021 REASON FOR FOLLOWUP: 1. Left shoulder infection. 2. Positive UA. Concern for possible UTI. INTERVAL HISTORY: The patient is currently afebrile. She has been complaining of pain to the left shoulder area. Denies having any chest pain, shortness of breath or cough. no vomiting or diarrhea. PHYSICAL EXAMINATION: Blood pressure 131/69, pulse 84, temperature 97.7. She is 97% on 2 L nasal cannula. GENERAL DESCRIPTION: General description is an elderly female lying in bed in no distress. RESPIRATORY SYSTEM: Unlabored breathing. Clear to auscultation anteriorly. HEART: S1, S2. Regular rate and rhythm. ABDOMEN: Soft. No tenderness. LABS: Hemoglobin is 8.3, white count 9.92, BUN of 14, creatinine 0.9. DIAGNOSTIC IMPRESSION AND PLAN: 1. Patient with MRSA left shoulder infection, status was removal of the hardware. Patient is covered with vancomycin. 2. Positive UA. It is very hard to get any urinary sample from this patient's straight cath. UA has been requested, not completed. Will follow those and adjust antibiotic if needed. Continue supportive care. MMODL / IJN: [id number] /
[2021-06-29] MEDS ORDERED: TAMSULOSIN 0.4 MG CAP.ER.24H PO SCH (21:15)
[2021-06-29] MEDS: ATORVASTATIN 40 MG TAB PO SCH (21:20)
[2021-06-29] MEDS: METOPROLOL SUCCINATE (ER) 50 MG TAB.ER.24H PO SCH (21:20)
[2021-06-30] MEDS: PANTOPRAZOLE 40 MG TABLET PO SCH (05:22)
[2021-06-30] MEDS: IBUPROFEN ORAL SUSP 2,400 MG/120 ML BOTTLE PEG/G-TUBE SCH ×2 (05:22→11:46)
[2021-06-30] MEDS: AZTREONAM 1 GM in SODIUM CHLORIDE 0.9% 50 ML IVPB SCH (05:23)
[2021-06-30] MEDS: polyethylene glycoL 3350 17 GM POWD.PACK PO SCH (09:34)
[2021-06-30] MEDS: CHOLESTYRAMINE (WITH SUGAR) 4 GM PACKET PO SCH (09:34)
[2021-06-30] MEDS: POTASSIUM CHLORIDE ER 10 MEQ TAB.ER.PRT PO SCH (09:39)
[2021-06-30] MEDS: FUROSEMIDE 20 MG TAB PO SCH (09:39)
[2021-06-30] MEDS: DOCUSATE ORAL SOLN 100 MG/10 ML CUP PEG/G-TUBE SCH (09:39)
[2021-06-30] MEDS: MEMANTINE 10 MG TAB PO SCH (09:39)
[2021-06-30] MEDS: MEGESTROL 400 MG/10 ML CUP PEG/G-TUBE SCH (09:39)
[2021-06-30] MEDS: VANCOMYCIN 1,250 MG in SODIUM CHLORIDE 0.9% 250 ML IVPB SCH (09:40)
[2021-06-30] MEDS: HEPARIN SODIUM,PORCINE/PF 5,000 UNIT/0.5 ML SYRINGE SQ SCH (09:40)
[2021-06-30 13:09] VITALS: BMI 25.6
[2021-06-30] MEDS ORDERED: ASPIRIN 81 MG PEG/G-TUBE SCH (13:15)
[2021-06-30] MEDS ORDERED: FLUCONAZOLE 100 MG TAB PO ONE (13:18)
--- NOTE | 2021-06-30 14:23 | PN ---
PROGRESS NOTE DATE OF SERVICE: 06/30/2021 REASON FOR FOLLOWUP: 1. Left shoulder septic arthritis. 2. Positive culture with charissa. INTERVAL HISTORY: The patient is currently afebrile. The patient is more awake and alert. She is breathing comfortably. No chest pain or cough. No abdominal pain or worsening pain to the left shoulder area. PHYSICAL EXAMINATION: Blood pressure 163/73 with a pulse of 88, temperature 98.2. She is 96% on 2 L nasal cannula. GENERAL DESCRIPTION: General description is an elderly female lying in bed in no distress. RESPIRATORY SYSTEM: Unlabored breathing. Clear to auscultation anteriorly. HEART: S1, S2. Regular rate and rhythm. ABDOMEN: Soft. No tenderness. LABS: Hemoglobin 8.3, white count 9.92. BUN of 14, creatinine 0.49. DIAGNOSTIC IMPRESSION AND PLAN: 1. Patient with left shoulder septic arthritis, status post removal of the hardware. To continue with vancomycin for another 4 weeks to finish her 6-week course of therapy. 2. Positive urine culture, likely colonization. No symptoms. No need for any specific therapy on discharge. Discussed with the admitting physician. MMODL / IJN: [id number] /
--- NOTE | 2021-06-30 14:31 | P.DS ---
Providers Date of admission: 06/30/21 12:41 Attending physician: Volodymyr Shin Consults: 06/23/21 19:14 Consult Physician Routine Consulting Provider: Chapito Newman Consult Reason/Comments: peg tube insertion Do you want consulting provider notified?: Yes 06/24/21 16:48 Consult Physician Routine Consulting Provider: James Edmondson Consult Reason/Comments: IV abx Do you want consulting provider notified?: Yes Primary care physician: Johnathon Sylvester Hospital Course: Diagnoses: Left shoulder infection, status post hardware removal. Micro-Kerrison: MRSA. Acute urinary tract infection, secondary to charissa no urinary retention Metabolic encephalopathy secondary to infection, the top of her dementia Dementia, most likely senile dementia History of dysphagia, status post PEG tube on 06/23 Mild to moderate calorie protein malnutrition Hospital course Ms. Lizarraga is a 81-year-old female with a past medical history of dementia, GERD, hypertension, seizure disorder, history of MRSA, living in [place] area was admitted to the hospital for mental status changes. Patient has infection of the left shoulder, had surgical removal of hardware and treated for MRSA infection of the joint, sent to rehab on vancomycin, patient continued to be confused and so transferred to [facility] for further evaluation. The patient has very poor historian, confused and unable to provide any history. On reviewing the previous records, the patient was then discharged from the hospital 1 week earlier to [facility], patient at that time was found eligible for palliative consult and possible considering comfort care measures if she does not improve. However patient was sent back to the hospital because she was not eating well and her POA wanted her to get PEG tube placed. Surgery team evaluated the patient and PEG tube actually was inserted on 06/23 she is currently on tube feeding. Also patient evaluated by infectious disease team who recommended to continue with IV vancomycin for 4 more weeks. Some altered mental status secondary to UTI secondary to charissa, this post antifungal treatment by infectious disease team. Patient currently is awake and alert, however he was which looks like her baseline and/or chronic. Bladder scan was checked on several occasions and she does not have urinary retention. For example earlier this morning it was 272 and last night to 37. No need for Vora catheter however patient denies any chest pain or dyspnea. No pain. No diarrhea. No fever. Patient was cleared for discharge by infectious disease team Over patient is with multiple advanced medical problem and palliative care consult still recommended, and possible to consider comfort care measures with the family especially if patient does not get well more or she got worse again. Problems and management plan were discussed with the patient and he verbalized understanding and acceptance Patient was found stable and can be discharged to [facility] in guarded prognosis however he needs follow-up as an outpatient. Patient was instructed to follow up with PCP within one week and patient agrees Physical exam -Gen: patient is a awake but confused no distress CVS: S1-S2, RRR, no murmur Lungs: B/L CTA, no wheezing Abdomen: soft, no distention, no tenderness, positive bowel sounds. PEG tube is in place with tube feeding running Extremity: no leg edema or induration Time spent more than 35 minutes Patient Condition at Discharge: Serious Plan - Discharge Summary Discharge Rx Participant: No New Discharge Prescriptions: No Action Metoprolol Succinate [Toprol XL] 50 mg PO HS@2100 Cholestyramine (with Sugar) [Questran Packet] 4 gm PO DAILY@0900 Atorvastatin [Lipitor] 40 mg PO HS@2100 Polyethylene Glycol 3350 [Miralax] 17 gm PO DAILY@0900 QUEtiapine [SEROquel] 12.5 mg PO HS PRN tab PRN Reason: Agitation Furosemide [Lasix] 20 mg PO DAILY@0900 Megestrol [Megace] 400 mg PO DAILY@0900 Potassium Bicarbonate/Cit AC [K-Lyte] 10 meq PO DAILY@0900 Acetaminophen [Tylenol] 500 mg PO Q6H PRN PRN Reason: Mild Pain Or Fever > 100.5 Memantine [Namenda] 10 mg PO BID@0900,2100 Omeprazole 20 mg PO DAILY@0600 Docusate [Colace] 100 mg PO BID@0900,1700 Ibuprofen [Advil] 200 mg PO QID@0000,0600,12,18 traMADol HCL [Ultram] 50 mg PO Q4HR PRN PRN Reason: Pain Discharge Medication List Acetaminophen [Tylenol] 500 mg PO Q6H PRN 06/15/21 [History] Atorvastatin [Lipitor] 40 mg PO HS@2100 06/15/21 [History] Cholestyramine (with Sugar) [Questran Packet] 4 gm PO DAILY@0900 06/15/21 [History] Docusate [Colace] 100 mg PO BID@0900,1700 06/15/21 [History] Memantine [Namenda] 10 mg PO BID@0900,2100 06/15/21 [History] Metoprolol Succinate [Toprol XL] 50 mg PO HS@2100 06/15/21 [History] Omeprazole 20 mg PO DAILY@0600 06/15/21 [History] Polyethylene Glycol 3350 [Miralax] 17 gm PO DAILY@0906/15/21 [History] QUEtiapine [SEROquel] 12.5 mg PO HS PRN tab 06/22/21 [Rx] Furosemide [Lasix] 20 mg PO DAILY@0906/23/21 [History] Ibuprofen [Advil] 200 mg PO QID@0000,0600,12,18 06/23/21 [History] Megestrol [Megace] 400 mg PO DAILY@0900 06/23/21 [History] Potassium Bicarbonate/Cit AC [K-Lyte] 10 meq PO DAILY@0900 06/23/21 [History] traMADol HCL [Ultram] 50 mg PO Q4HR PRN 06/23/21 [History] Follow up Appointment(s)/Referral(s): Shelia Aguillon, [NON-STAFF] - As Needed Johnathon Sylvester MD [Primary Care Provider] - 1-2 days
[2021-06-30] MEDS ORDERED: POTASSIUM CHLORIDE ER 10 MEQ TAB.ER.PRT PO STA (14:42)
[2021-06-30] MEDS ORDERED: MAGNESIUM OXIDE 400 MG TAB PEG/G-TUBE SCH (14:42)
[2021-06-30 15:31] VITALS: BP 140/81; PULSE 90; RESP 18; TEMP 98.5
[2021-07-01] MEDS ORDERED: VANCOMYCIN TROUGH DUE 1 EACH MISC MISCELLANE ONE (08:00)
[2021-07-01] MEDS ORDERED: POTASSIUM CHLORIDE ER 10 MEQ TAB.ER.PRT PO SCH ×3 (09:00)
== END 2021-06-30 17:00 | DRG 862 ==
LOC: EC 15:12 → 4SSUR 19:28 → OBSVTOIN 06-30 12:41 → MERGE 06-30 12:41
PROVIDERS: ADMIT Hospitalist; ATTEND Hospitalist
PROC: 0DH63UZ Insertion of Feeding Device into Stomach, Percutaneous Approach (ICD-10-PCS; principal; 2021-06-26)
PROC: 3E0G76Z Introduction of Nutritional Substance into Upper GI, Via Natural or Artificial Opening (ICD-10-PCS; 2021-06-26)
DX: T81.40XA Infection following a procedure, unspecified, initial encounter (principal); G93.41 Metabolic encephalopathy; N17.9 Acute kidney failure, unspecified; Z16.24 Resistance to multiple antibiotics; B37.49 Other urogenital candidiasis; E44.0 Moderate protein-calorie malnutrition; M00.9 Pyogenic arthritis, unspecified; L02.414 Cutaneous abscess of left upper limb; E86.0 Dehydration; E78.5 Hyperlipidemia, unspecified; E87.6 Hypokalemia; I10 Essential (primary) hypertension; K21.9 Gastro-esophageal reflux disease without esophagitis; Z86.14 Personal history of Methicillin resistant Staphylococcus aureus infection; Z79.899 Other long term (current) drug therapy; Z87.440 Personal history of urinary (tract) infections; F32.9 Major depressive disorder, single episode, unspecified; R56.9 Unspecified convulsions; R62.7 Adult failure to thrive; F03.90 Unspecified dementia, unspecified severity, without behavioral disturbance, psychotic disturbance, mood disturbance, and anxiety
CPT/HCPCS: 36415; 43246; 74177; 80048; 80053; 81001; 83605; 83690; 83735; 84145; 85025; 85652; 86140; 87086; 93005; 94760; 99285